=== PATIENT | female | born 1995 | race Caucasian/White ===

== ENCOUNTER 2017-11-27 01:48 | Emergency (ER) | payer OTHER ==
[~2017-11-27] VITALS: Ht 170.2 cm; Wt 59.4 kg
[2017-11-27 01:57] VITALS: O2SAT 97
[2017-11-27 02:00] VITALS: TEMP 36.8; Ht 170.2 cm; Wt 59.4 kg
--- NOTE | 2017-11-27 02:11 | EMERGENCY ROOM VISIT NOTE ---
History Report prepared by Siobhan: Suzanne Mast Under the Supervision of: Dr. Clare Madrid D.O. First contact with patient: 01:50 Chief Complaint: SYNCOPE Stated Complaint: SYNCOPE History of Present Illness The patient is a 22 year old female who presents to the Emergency Room with complaints of an episode of alcohol overdose occurring prior to arrival. Per EMS , the patient was drinking downtown and ended up at [facility]. They report that the patient, according to [facility]'s staff, came in already intoxicated. They state that she passed out in a bathroom stall. They state that she told them she was drinking vodka, but was unsure to the amount. They report that she was not with friends and that she did not vomit. The patient states that she was out with friends. The patient denies nausea, falling, getting hurt, failing to remember the night, chance of and any medical problems. The patient states that the bruise on her leg is from walking into a wall a few nights ago. Source of History: patient Onset: prior to arrival Position: other (global) Quality: other (alcohol overdose) Timing: other (episode) Associated Symptoms: No nausea, No vomiting Note: The patient denies falling, getting, hurt, and failing to remember the night. Review of Systems See HPI for pertinent positives & negatives. A total of 10 systems reviewed and were otherwise negative. Past Medical & Surgical Medical Problems: (1) No Known Active Medical Problems Family History No pertinent family history Social History Alcohol Use: occasionally Marital Status: single Housing Status: lives with roommate Occupation Status: student Current/Historical Medications Unable to Obtain Active Prescriptions or Reported Meds Allergies Coded Allergies: No Known Allergies (Unverified , 11/27/17) Physical Exam Vital Signs Date Time Temp Pulse Resp B/P (MAP) Pulse Ox O2 Delivery O2 Flow Rate FiO2 11/27/17 03:30 100 18 108/87 98 Room Air 11/27/17 02:40 91 18 97/87 98 Room Air 11/27/17 02:00 36.8 121 20 138/87 98 Room Air 11/27/17 01:58 121 11/27/17 01:57 97 Room Air 11/27/17 01:57 97 Room Air Physical Exam GENERAL: alert, well appearing, well nourished, no distress, non-toxic, smell of EtOH. HEAD: NC/AT EYE EXAM: normal conjunctiva, PERRL and EOM's grossly intact OROPHARYNX: no exudate, no erythema, lips, buccal mucosa, and tongue normal and mucous membranes are moist NECK: supple, no nuchal rigidity, no adenopathy, non-tender LUNGS: Clear to auscultation. Normal chest wall mechanics, no crepitus or evidence of trauma. HEART: no murmurs, S1 normal and S2 normal ABDOMEN: abdomen soft, non-tender, normo-active bowel sounds, no masses, no rebound or guarding. PELVIS: Stable BACK: Back is symmetrical on inspection and there is no deformity, no midline tenderness, no CVA tenderness. SKIN: no rashes and no bruising UPPER EXTREMITIES: upper extremities are grossly normal. Normal pulses. No deformities noted. No joint effusions. No evidence of trauma. LOWER EXTREMITIES: No pitting edema. Normal pulses. No deformities noted. One small contusion on the left anterior mid thigh. No joint effusions. No other evidence of trauma. NEURO EXAM: Normal sensorium, cranial nerves II-XII grossly intact, normal speech, no gross weakness of arms, no gross weakness of legs. Medical Decision & Procedures Laboratory Results 11/27/17 02:15 Test 11/27/17 02:15 Anion Gap 8.0 mmol/L (3-11) Est Creatinine Clear Calc Drug Dose 97.3 ml/min Estimated GFR () 112.7 Estimated GFR (Non- 97.3 BUN/Creatinine Ratio 10.8 (10-20) Calcium Level 8.7 mg/dl (8.5-10.1) Ethyl Alcohol mg/dL 290.0 mg/dl (0-3) Laboratory results per my review. ED Course 0151: The patient was evaluated in room B4B. A complete history and physical exam was performed. 0220: Patient asking for clothing and phone, slightly belligerent with staff. 0305: The patient is still trying to call a friend to come get her. She is still belligerent. 0330: Patient awake and talking, no slurred speech, ambulate with steady gait, tolerated p.o. without incident or vomiting. Patient was able to call and find a friend to come pick her up at bedside. Friend now at bedside and patient states this is "my best friend". Patient appears clinically sober despite serum level intoxication. This was discussed with patient and friend at bedside at length. Discussed concern for her level of drinking and intoxication tonight. Discussed concern over events. Patient with no complaints of pain. I have a low suspicion for any occult traumatic injury. Patient's friend and tends to take her home and then stay with her until the morning to assure her safety. Medical Decision Differential diagnosis: Etiologies such as alcohol intoxication, toxicologic, infection, hypoglycemia, electrolyte abnormalities, cardiac sources, intracerebral event, neurologic, as well as others were entertained. Patient awake alert and talking the entire time the night. Patient with no reported injury and no physical exam findings to suggest trauma. Patient tolerated p.o. here. Patient able to ambulate with a steady gait. Patient spent significant amount of time trying to find a safe and sober ride. Eventually she was able to do so. Her friend at bedside did not appear altered and intoxicated, was reasonable, and willing to assume responsibility for her this evening. Discussed with her concern for her level drinking tonight, discussed what is appropriate and responsible alcohol consumption. Patient advised never to drink and drive. Discussed hydration, symptoms to watch and return for, she and her sober friend verbalized understanding and were agreeable with plan. I do not suspect patient actually had a syncopal event. Likely patient was intoxicated, and fell asleep in the bathroom. Medication Reconcilliation Current Medication List: was personally reviewed by me Blood Pressure Screening Patient's blood pressure: Normal blood pressure Blood pressure disposition: Did not require urgent referral Impression Primary Impression: Alcohol intoxication Scribe Attestation The scribe's documentation has been prepared under my direction and personally reviewed by me in its entirety. I confirm that the note above accurately reflects all work, treatment, procedures, and medical decision making performed by me. Departure Information Dispostion Home / Self-Care Prescriptions Unable to Obtain Active Prescriptions or Reported Meds Forms HOME CARE DOCUMENTATION FORM, IMPORTANT VISIT INFORMATION Patient Instructions My [facility] Additional Instructions Please drink responsibly and in a safe location. Do not drink and drive. Please drink plenty of water. If you have any new or concerning symptoms, please return the emergency room. Problem Qualifiers Primary Impression: Alcohol intoxication Complication of substance-induced condition: uncomplicated Qualified Codes: F10.920 - Alcohol use, unspecified with intoxication, uncomplicated
[2017-11-27 03:20] LABS: CALCIUM 8.7 mg/dl (8.5-10.1); CREATININE 0.85 mg/dl (0.60-1.20)
[2017-11-27 03:30] VITALS: BP 108/87; PULSE 100; O2SAT 98
== END 2017-11-27 03:43 | disposition home or self-care (01) ==
LOC: C.EDB 01:49
DX: F10.920 Alcohol use, unspecified with intoxication, uncomplicated (principal); S70.12XA Contusion of left thigh, initial encounter; X58.XXXA Exposure to other specified factors, initial encounter